=== PATIENT | female | born 1995 | race Caucasian/White ===

== ENCOUNTER → 2017-01-08 14:50 | Emergency (ER) | payer OTHER | END | disposition home or self-care (01) | LOC: UCEAST 14:50 | DX: Z53.21 Procedure and treatment not carried out due to patient leaving prior to being seen by health care provider (principal) ==

== ENCOUNTER 2017-01-08 14:58 | Emergency (ER) | payer OTHER ==
[2017-01-08 15:44] VITALS: BP 101/57
--- NOTE | 2017-01-08 16:37 | UC ---
GI Bleed HPI - HPI Summary HPI Summary: 21 year old female who is 6 weeks , complaints of feeling sick with nausea for past 2 weeks, vomited once yesterday. Sob at times per patient. Type 1 diabetic. SOB started 3-4 days ago and can not walk upstairs without getting SOB. [ End ] - History Of Current Complaint Chief Complaint: UCGeneralIllness Stated Complaint: VOMITING Time Seen by Provider: 01/08/17 16:16 Hx Obtained From: Patient Hx Last Menstrual Period: 08/08/14 - Allergies/Home medications Allergies/Adverse Reactions: Allergies Allergy/AdvReac Type Severity Reaction Status Date / Time environmental allergies Allergy Congestion Uncoded 01/08/17 15:43 PMH/Surg Hx/FS Hx/Imm Hx Previously Healthy: Yes Endocrine History: Diabetes - Surgical History Surgical History: None Surgery Procedure, Year, and Place: left arm mole 2010 - Family History Known Family History: Positive: None - Social History Lives: With Family Alcohol Use: Occasionally Substance Use Type: None Smoking Status (MU): Former Smoker Type: Cigarettes Amount Used/How Often: 2 per day Length of Time of Smoking/Using Tobacco: 5 years on/off Have You Smoked in the Last Year: Yes When Did the Patient Quit Smoking/Using Tobacco: 2013 - Immunization History Most Recent Tetanus Shot: unknown Review of Systems Respiratory: Shortness Of Breath All Other Systems Reviewed And Are Negative: Yes Physical Exam Triage Information Reviewed: Yes Appearance: Well-Appearing, No Pain Distress, Well-Nourished Vital Signs: Initial Vital Signs Temp 99.4 F 01/08/17 15:38 Pulse 69 01/08/17 15:38 Resp 16 01/08/17 15:38 BP 101/57 01/08/17 15:38 Pulse Ox 100 01/08/17 15:38 Eye Exam: Normal ENT Exam: Normal Dental Exam: Normal Neck exam: Normal Neck: Positive: 1 Respiratory Exam: Normal Cardiovascular Exam: Normal Musculoskeletal Exam: Normal Neurological Exam: Normal Psychological Exam: Normal Skin Exam: Normal Bleed Course/Dx - Course Course Of Treatment: With SOB and being concern for hypercoaguable. Needs further work up likely including r/o PE -- she is aware and agreeable to go to ED by car. I spoke with [facility] and they are willing to accept her. She is aware of risks of not going to ED and signed AMA form as she declined ambulance - Differential Dx/Diagnosis Provider Diagnoses: shortness of breath Discharge - Discharge Plan Condition: Good Disposition: AGAINST MEDICAL ADVICE Patient Education Materials: Dyspnea (ED) Referrals: MISTI Ocampo [Primary Care Provider] - Additional Instructions: PLEASE GO DIRECTLY TO THE EMERGENCY ROOM IN [place]
== END 2017-01-08 16:57 | disposition left against medical advice (07) ==
LOC: UCCORT 14:58
DX: O21.0 Mild hyperemesis gravidarum (principal); O24.911 Unspecified diabetes mellitus in pregnancy, first trimester; R06.02 Shortness of breath; Z3A.01 Less than 8 weeks gestation of pregnancy
CPT/HCPCS: 99212; G0463

== ENCOUNTER → 2017-01-08 15:11 | Emergency (ER) | payer OTHER | END | disposition home or self-care (01) | LOC: UCEAST 15:11 | DX: Z53.21 Procedure and treatment not carried out due to patient leaving prior to being seen by health care provider (principal) ==

== ENCOUNTER 2018-07-25 18:32 | Emergency (ER) | payer OTHER ==
--- OUTSIDE RECORDS SUMMARY | 2018-07-25 18:41 | XMS REPORT | Continuity of Care Document ---
:1995 External Reference #:[id number] Author Name Omer Georges Care Team Providers Name Role Phone Lourdes Staley PA Care Team Information Class A Truck Driver Unavailable Lourdes Staley PA Primary Care Physician Unavailable Payers Date Identification Numbers Payment Provider Subscriber Policy Number: [id number] [place] [employer] Jael Allen PayID: [id number] [address] [address] [place] [address] Expires: 2017 Policy Number: [id number] [place] [employer] Jael Allen PayID: [id number] [address] [place] [address] Advance Directives Description No Information Available Problems Active Problems Provider Date Kenan Jimenez MD,FACS Onset: 08/30/2016 Type 1 diabetes mellitus uncontrolled Lourdes Staley PA Onset: 05/31/2017 Family History Date Family Member(s) Observation Comments Father No Current Problems Mother 42 Mother Cyst Of Ovary Children 1 Siblings 2 : (age 72 Maternal Grandfather due to Heart Attack Years) Maternal Grandmother due to Breast Cancer () Social History Type Date Description Comments Sex Unknown Lives With Grandmother Lives With Grandfather Diet Diabetic Occupation [employer]. ADL's/IADL's Independent with all ADL's ETOH Use Occasionally consumes alcohol Tobacco Use Start: Unknown End: Patient is a former smoker 1/2 pack per day. Unknown Started at age 16. Quit 3 years ago. Smoking Status Reviewed: 06/19/18 Patient is a former smoker 1/2 pack per day. Started at age 16. Quit 3 years ago. Allergies, Adverse Reactions, Alerts Description No Known Drug Allergies Medications Active Medications SIG Qnty Indications Ordering Date Provider Sertraline HCL 1 by mouth every 30tabs F33.9 Kelli Marcum, 06/19/2018 50mg day Tablets Ventolin HFA 2 puffs every 4 18gm J45.20 Kelli Marcum, 05/02/2018 hours as needed 108(90Base) mcg/Act for cough and Aerosol wheeze Pulmicort Flexhaler one puff twice a 3units J45.20 Clune, 02/24/2017 day Jenbecky, 180mcg/Act Aerosol [employer] Alma Contour Next 1 strip 3-4x a 350units E10.65 Caren Dykes, 11/08/2016 Blood Glucose Test day M.D. Strips Onetouch Ultra Blue use to test blood 150units Caren Dykes, 06/09/2016 sugar 2-4x a day M.D. Strips Minimed Pro-Set as needed 10units E10.65 Caren Dykes, 03/25/2016 Infusion Set/24"/6mm M.D. 24"/6mm Misc Minimed Pump change reservoir 30units E10.65 Caren Dykes, 03/04/2016 [place] 3ML every 3 days M.D. Res 3ML Misc Ketone Test as needed 50units Caren Dykes, 12/05/2015 Strips M.D. Alma Contour Next Malick Dykes, Blood Glucose Test MD Strips Levothyroxine Sodium 1 tab daily on an Anjel Castañeda W, empty stomach 50mcg Tablets Admelog Use With Insulin Unknown 100Unit/ML Pump Maximum Solution Daily Dose 100 Units History Medications Diazepam 1-2 tabs po 1 hour 4tabs F41.9 Kelli Marcum, 05/02/2018 - 2mg prior to dental 06/19/2018 Tablets procedure Sertraline HCL 1 by mouth every 30tabs F33.9 Kelli Marcum, 05/02/2018 - 25mg day 06/19/2018 Tablets Escitalopram 1/2 by mouth daily 30tabs F33.9 Kelli Marcum, 01/11/2018 - Oxalate during first week, 05/02/2018 10mg then increase to 1 Tablets by mouth every day Zoloft 1 tab by mouth 30tabs Jossue Kelli, 09/09/2017 - 50mg Tablets every day 01/11/2018 [address] of 3units Kerrie Mary, 06/01/2017 - 100mg vagina at bedtime M.D. 06/01/2017 Suppository for 3 nights. Clindamycin [address] of 40gm Kerrie Mary, 06/01/2017 - Phosphate vagina at bedtime M.D. 06/04/2017 2% Cream for 3 nights. Alma Contour Link use to test bs 1units Caren Dykes, 11/08/2016 - Blood Glucose three times a day M.D. 11/18/2016 Monitoring System w/Device Kit Humalog Kwikpen per s/s MDD 15units Caren Dykes, 03/31/2016 - 30units M.D. 11/08/2016 100Unit/ML Solution Pen-Inject Humalog for use in insulin 4vials Caren Dykes, 11/20/2015 - 100Unit/ML pump MDD 55units M.D. Unknown Solution Humalog for use in insulin 30ml Kerrie Mary, 11/19/2015 - 100Unit/ML pump - mdd 55units M.D. 06/19/2018 Solution [employer] Contour Blood check glucose 4x/ 200units Caren Dykes, 11/19/2015 - Glucose Test Strips day M.D. 12/10/2015 Strips Famotidine 1 tab by mouth Unknown - 20mg daily Unknown Tablets Lantus Solostar 40 u subcutaneous Unknown - every day 03/11/2016 100Unit/ML Solution Pen-Inject Humalog Kwikpen s/s before meals Unknown - 03/11/2016 100Unit/ML Solution Pen-Inject Paroxetine HCL 1 by mouth every Unknown - 10mg day 03/11/2016 Tablets Flintstones Gummies 2 tabs daily Unknown - Complete 01/11/2018 [facility] Immunizations CPT Code Status Date Vaccine Lot # [id number] Given 05/02/2018 Pneumococcal Conjugate Vaccine 13 Valent For [id number] Intramuscular Use 25048 Given 01/11/2018 Influenza Virus Vaccine, Quadrivalent, 36 Mos+, [id number] Given 02/02/2017 Influenza Virus Vaccine Quadrivalent Iiv4 Split Preser Free Id Vital Signs Date Vital Result Comment 06/19/2018 8:57am BP Systolic Sitting Right Arm 124 mmHg BP Diastolic Sitting Right Arm 72 mmHg Body Temperature 97.7 F Heart Rate 92 /min Weight 236.25 lb O2 % BldC Oximetry 97 % 05/02/2018 10:24am BP Systolic 110 mmHg BP Diastolic 82 mmHg Body Temperature 98.8 F Heart Rate 81 /min Respiratory Rate 18 /min Height 65 inches 5'5" Weight 230.00 lb BMI (Body Mass Index) 38.3 kg/m2 BSA (Body Surface Area) 2.10 m2 [place] body weight in kilograms 57 kg O2 % BldC Oximetry 98 % 01/11/2018 1:23pm BP Systolic Sitting Right Arm 122 mmHg BP Diastolic Sitting Right Arm 78 mmHg Body Temperature 97.5 F Heart Rate 95 /min Weight 254.31 lb O2 % BldC Oximetry 98 % 05/31/2017 2:48pm BP Systolic Sitting Right Arm 118 mmHg BP Diastolic Sitting Right Arm 64 mmHg Body Temperature 97.3 F Heart Rate 78 /min Weight 214.25 lb O2 % BldC Oximetry 97 % 02/24/2017 3:29pm BP Systolic Sitting Left Arm 108 mmHg BP Diastolic Sitting Left Arm 64 mmHg Body Temperature 98.4 F Heart Rate 72 /min Respiratory Rate 18 /min Height 66 inches 5'6" Weight 203.00 lb BMI (Body Mass Index) 32.8 kg/m2 BSA (Body Surface Area) 2.01 m2 [place] body weight in kilograms 59 kg 02/02/2017 2:46pm BP Systolic 104 mmHg BP Diastolic 68 mmHg Heart Rate 69 /min Height 66 inches 5'6" 70 Weight 206.25 lb BMI (Body Mass Index) 33.3 kg/m2 BSA (Body Surface Area) 2.03 m2 [place] body weight in kilograms 59 kg 11/08/2016 2:09pm BP Systolic 122 mmHg BP Diastolic 76 mmHg Height 66 inches 5'6" 70 Weight 210.38 lb BMI (Body Mass Index) 34.0 kg/m2 BSA (Body Surface Area) 2.04 m2 [place] body weight in kilograms 59 kg 08/30/2016 2:58pm BP Systolic 122 mmHg BP Diastolic 78 mmHg Height 66 inches 5'6" 70 Weight 215.00 lb BMI (Body Mass Index) 34.7 kg/m2 BSA (Body Surface Area) 2.06 m2 [place] body weight in kilograms 59 kg 03/11/2016 2:36pm BP Systolic 112 mmHg BP Diastolic 70 mmHg Height 08648 inches 5509'4" 70 Weight 190.00 lb BMI (Body Mass Index) 0.0 kg/m2 BSA (Body Surface Area) 293.18 m2 08/27/2015 1:15pm BP Systolic 112 mmHg BP Diastolic 70 mmHg Height 82457 inches 70 Weight 182.38 lb BMI (Body Mass Index) 0.0 kg/m2 BSA (Body Surface Area) 288.12 m2 [place] body weight in kilograms 752311 kg Results Test Date Facility Test Result H/L Range Note CBC 05/12/2018 [facility] White Blood Count 4.7 K/uL N 3.1-10.7 1 [address] [place] [address] [phone] Red Blood Count 4.84 M/uL N 3.90-5.40 Hemoglobin 13.1 gm/dL N 11.6-15.8 Hematocrit 38.6 % N 36.0-46.1 Mean Cell Volume 79.8 fl Low 80.9-99.0 Mean Corpuscular HGB 27.1 pg N 25.9-32.7 Mean Corpuscular HGB Conc 33.9 g/dL N 30.8-34.3 Platelet Count 286 K/uL N 155-360 Red Cell Distri Width %CV 13.4 % N 11.7-14.4 Mean Platelet Volume 10.5 fL N 8.9-12.4 Ua RFX Micro & Culture 05/12/2018 [facility] Urine Color YELLOW Yellow II [address] [place] [address] [phone] Urine Clarity CLEAR Clear Urine Glucose - Dipstick >=1000 mg/dL High Negative Urine Bilirubin - Dipstick NEGATIVE Negative Urine Ketone NEGATIVE mg/dL Negative Urine Specific [place] 1.025 N 1.010-1.030 Urine Blood SMALL Abnormal Negative Urine PH 7.0 N 6.5-7.5 Urine Protein - Dipstick NEGATIVE mg/dL Negative Urine Urobilinogen - Dipstick 0.2 E.U./dL N 0.2-1.0 Urine Nitrite - Dipstick NEGATIVE Negative Urine Leuk Esterase NEGATIVE Negative Urine RBC 0-2 rbc/hpf 0-2 Urine WBC 2-5 wbc/hpf 0-7 Urine Epithelial Cells MODERATE /lpf None Seen 2 Urine Bacteria FEW None Seen Source: URINE, CLEAN CAT <SEE NOTE> 3 Comprehensive Metabolic 05/12/2018 [facility] Glucose 229 mg/dL High 74-106 Panel [address] [place] [address] [phone] BUN 11 mg/dL N 7-18 Creatinine 0.9 mg/dL 0.6-1.3 Glom Filtration Rate, Estimate >60 mL/min >60 If >60 mL/min >60 4 BUN/Creat 12.2 ratio Sodium 139 mmol/L N 136-145 Potassium 4.0 mmol/L N 3.5-5.1 Chloride 108 mmol/L High 98-107 Carbon Dioxide 23 mmol/L N 21-32 Anion Gap 8 mEq/L N 8-16 Calcium 8.3 mg/dL Low 8.5-10.1 Total Protein 7.5 g/dL N 6.4-8.2 Albumin 3.5 g/dL N 3.4-5.0 Globulin 4.0 g/dL N 1.9-4.3 Alb/Glob 0.9 ratio Bilirubin,Total 0.6 mg/dL N 0.2-1.0 Sgot/Ast 16 U/L N 15-37 SGPT/Alt 12 U/L N 12-78 Alkaline Phosphatase 71 U/L N 45-117 Laboratory test 05/12/2018 [facility] HCG, Quant < 1.0 mIU/mL 5 finding [address] [place] [address] [phone] Urine Dipstick 05/02/2018 [facility] Ua Color Yellow Yellow Ua Clarity Clear Clear Ua Leuko Negative Negative Ua Nitrite Negative Negative Ua Urobilinogen Negative Low 0.2 - 1.0 E.U./dL Ua Protein Negative Negative Ua PH 6.5 6.5-7.5 Ua Blood Negative Negative Ua Specific [place] 1.015 1.010-1.030 Ua Ketones 3+ High Negative Ua Bilirubin Negative Negative Ua Glucose 3+ High Negative pH Ur Strip.auto 02/27/2018 N2N/CCD Import pH Ur Strip.auto 5.5 Low 6.5- 7.5 Urobilinogen Ur 02/27/2018 N2N/CCD Import Urobilinogen Ur 0.2 0.2-1.0 Strip-aCnc Strip-aCnc Urine total 02/27/2018 N2N/CCD Import Urine total Negative Negative bilirubin bilirubin detection by detection by automated test automated test strip Urine human 02/27/2018 N2N/CCD Import Urine human Negative Negative chorionic chorionic gonadotropin (hCG) gonadotropin (hCG) detection detection Urine hemoglobin 02/27/2018 N2N/CCD Import Urine hemoglobin Negative Negative detection by detection by automated test automated test strip strip Urine appearance 02/27/2018 N2N/CCD Import Urine appearance Clear Clear determination determination Prot Ur 02/27/2018 N2N/CCD Import Prot Ur Negative Negative Strip.auto-mCnc Strip.auto-mCnc Nitrite Ur Ql 02/27/2018 N2N/CCD Import Nitrite Ur Ql Negative Negative Strip.auto Strip.auto Leukocyte esterase 02/27/2018 N2N/CCD Import Leukocyte esterase Negative Negative Ur Ql Strip.auto Ur Ql Strip.auto Ketones Ur 02/27/2018 N2N/CCD Import Ketones Ur 40 High Negative Strip.auto-mCnc Strip.auto-mCnc Color Ur 02/27/2018 N2N/CCD Import Color Ur Yellow Yellow Chlmaydia/GC/Trich 02/27/2018 [facility] Chlamydia NEGATIVE Negative 6 omonas PCR [address] trachomatis, [place] [address] [phone] Neisseria gonorrhoeae, PCR NEGATIVE Negative 7 Trichomonas vaginalis PCR NEGATIVE Negative Herpes Culture 02/27/2018 [facility] Herpes Culture HSV [address] Culture/[place] [address] <SEE NOTE> [phone] Capillary 02/27/2018 N2N/CCD Import Capillary 470 *H 70-110 blood glucose blood glucose measurement by measurement by glucometer glucometer (mass/volume) Chlamydia/GC 05/31/[address] [facility] [address] Chlamydia Negative Negative 9 Valeria, Urine [address] Trachomatis,[place] [address] -PCR [phone] Neisseria Gonorrhoeae,Ur -PCR Negative Negative 10 Urine Culture 05/31/2017 [facility] [address] Urine Culture URETHRAL ALINA [address] [place] [address] [phone] Quantity 10,000 - 50,000 <SEE NOTE> 11 Affirm 05/31/[address] [facility] [address] Trichomonas Negative [Negative] Vaginitis [address] [place] [address] [phone] Gardnerella vaginalis POSITIVE High [Negative] Debra species Negative [Negative] 12 Laboratory 03/15/2017 [facility] Varicella-Zoster 2776 Immune 13, 14 test finding [address] Virus IgG Ab index >165 [place] [address] [phone] Varicella-Zoster Virus IgM Ab <0.91 index 0.00-0.90 15 Treponema Antibody [place] Negative Negative Hepatitis B Surface Antigen Negative Negative Hepatitis C Antibody < 0.1 s/corat 0.0-0.9 16 Rubella IgG Antibody 3.78 index Immune >0.99 17 Toxoplasma Igm 03/15/2017 [facility] Toxoplasma IgM 5.5 AU/mL 0.0-7.[address] [place] [address] [phone] Comment: (SEE NOTE) 19 Laboratory test 03/15/2017 [facility] Rubella Virus <20.0 AU/mL 0.0-19.[address] [place] [place] [address] [phone] Toxoplasma IgG Antibody <3.0 IU/mL 0.0-7.1 21 Parvovirus 03/15/2017 [facility] Parvovirus B19 0.6 index 0.0-0.8 22 B19,Human [address] Igg Igg/[place] [address] [phone] Parvovirus B19 Igm 0.1 index 0.0-0.8 23 HSV I & II Igg 03/15/2017 [facility] HSV II,Igg,Type <0.91 0.00-0.90 24 Type Specific [address] [place] [place] [address] [phone] HSV Type I Specific Igg 28.60 index High 0.00-0.90 25 Laboratory 03/15/2017 [facility] Lead,Blood <1 g/dL 0-19 26 test finding [address] (Adult) [place] [address] [phone] HIV Screen 4TH 03/15/2017 [facility] HIV Screen 4th Non Reactive Non 27 [address]lex [address] [place] [place] [address] wRfx [phone] Type And 03/15/2017 [facility] Patient Blood B POS N Screen [address] [place] [address] [phone] Antibody Screen Negative N Negative Laboratory test 03/15/2017 [facility] Thyroid Stim 3.34 uIU/mL N 0.30-4.[address] Hormone [place], [place] [address] [phone] HCG, Quant 03475.0 mIU/mL 28 Free T3 2.23 pg/mL N 2.18-3.98 Free T4 1.00 ng/dL N 0.76-1.46 CBC 03/15/2017 [facility] White Blood Count 9.2 K/uL N 3.1-10.7 [address] [place] [address] [phone] Red Blood Count 4.45 M/uL N 3.90-5.40 Hemoglobin 12.6 gm/dL N 11.6-15.8 Hematocrit 36.9 % N 36.0-46.1 Mean Cell Volume 82.9 fl N 80.9-99.0 Mean Corpuscular HGB 28.3 pg N 25.9-32.7 Mean Corpuscular HGB Conc 34.1 g/dL N 30.8-34.3 Platelet Count 296 K/uL N 155-360 Red Cell Distri Width %CV 13.2 % N 11.7-14.4 Mean Platelet Volume 10.4 fL N 8.9-12.4 Microalbumin,Random 03/15/2017 [facility] Microalbumin,Urine 27.2 mg/L < Urine [address] 20.0 [place], [place] [id number] [phone] Drugs Of Abuse-Urine 03/15/2017 [facility] Amphetamines (Urine) Negative Screen [address] [place], [place] [address] [phone] Barbiturates (Urine) Negative Benzodiazepines (Urine) Negative Cannabinoids (Urine) Negative Cocaine Metabolite (Urine) Negative Methadone (Urine) Negative Opiates (Urine) Negative Urine Cutoffs * 29 Ua RFX Micro & Culture 03/15/2017 [facility] Urine Color YELLOW Yellow II [address] [place] [address] [phone] Urine Clarity CLEAR Clear Urine Glucose - Dipstick 250 mg/dL High Negative Urine Bilirubin - Dipstick NEGATIVE Negative Urine Ketone NEGATIVE mg/dL Negative Urine Specific [place] >=1.030 N 1.010-1.030 Urine Blood NEGATIVE Negative Urine PH 6.0 Low 6.5-7.5 Urine Protein - Dipstick TRACE mg/dL Negative Urine Urobilinogen - Dipstick 0.2 E.U./dL N 0.2-1.0 Urine Nitrite - Dipstick NEGATIVE Negative Urine Leuk Esterase NEGATIVE Negative Source: URINE, CLEAN CAT <SEE NOTE> 30 Ua RFX Micro & Culture 12/31/2016 [facility] Urine Color YELLOW Yellow 31 II [address] [place] [address] [phone] Urine Clarity CLEAR Clear Urine Glucose - Dipstick >=1000 mg/dL High Negative Urine Bilirubin - Dipstick NEGATIVE Negative Urine Ketone NEGATIVE mg/dL Negative Urine Specific [place] >=1.030 N 1.010-1.030 Urine Blood NEGATIVE Negative Urine PH 6.0 Low 6.5-7.5 Urine Protein - Dipstick NEGATIVE mg/dL Negative Urine Urobilinogen - Dipstick 0.2 E.U./dL N 0.2-1.0 Urine Nitrite - Dipstick NEGATIVE Negative Urine Leuk Esterase NEGATIVE Negative Source: URINE, CLEAN CAT <SEE NOTE> 32 Laboratory test finding 12/31/2016 [facility] Lipase 101 U/L N 56-289 [address] [place] [address] [phone] HCG, Quant 3855.0 mIU/mL 33 Comprehensive Metabolic 12/31/2016 [facility] Glucose 146 mg/dL High 74-106 Panel [address] [place] [address] [phone] BUN 4 mg/dL Low 7-18 Creatinine 0.7 mg/dL N 0.6-1.3 Glom Filtration Rate, Estimate >60 mL/min >60 If >60 mL/min >60 34 BUN/Creat 5.7 ratio Sodium 139 mmol/L N 136-145 Potassium 3.5 mmol/L N 3.5-5.1 Chloride 109 mmol/L High 98-107 Carbon Dioxide 24 mmol/L N 21-32 Anion Gap 6 mEq/L Low 8-16 Calcium 8.2 mg/dL Low 8.5-10.1 Total Protein 7.2 g/dL N 6.4-8.2 Albumin 3.5 g/dL N 3.4-5.0 Globulin 3.7 g/dL N 1.9-4.3 Alb/Glob 0.9 ratio Bilirubin,Total 0.4 mg/dL N 0.2-1.0 Sgot/Ast 14 U/L Low 15-37 35 SGPT/Alt 10 U/L Low 12-78 36 Alkaline Phosphatase 57 U/L N 45-117 CBS W/Automated Diff 12/31/2016 [facility] White Blood 5.6 K/uL N 3.1-10.[address] [place] [address] [phone] Red Blood Count 4.31 M/uL N 3.90-5.40 Hemoglobin 12.2 gm/dL N 11.6-15.8 Hematocrit 35.2 % Low 36.0-46.1 Mean Cell Volume 81.7 fl N 80.9-99.0 Mean Corpuscular HGB 28.3 pg N 25.9-32.7 Mean Corpuscular HGB Conc 34.7 g/dL High 30.8-34.3 Platelet Count 291 K/uL N 150-400 Red Cell Distri Width SD 37.8 fl N 3-47 Red Cell Distri Width %CV 13.1 % N 11.7-14.4 Mean Platelet Volume 10.8 fL N 8.9-12.4 Neut% 54.6 % N 40.4-72.8 Lymph % 36.2 % N 20.0-42.0 Villalba % 7.7 % N 4.3-13.2 Eo% 1.3 % N 0.0-6.6 Bas% 0.2 % N 0.0-1.1 Neut# 3.05 K/uL N 1.8-7.0 Lymph # 2.02 K/uL N 1.0-4.0 Villalba # 0.43 K/uL N 0.3-0.9 Eos # 0.07 K/uL N 0.0-0.5 Baso # 0.01 K/uL N 0.0-0.1 CBS W/Automated 11/01/2016 [facility] White Blood 4.3 K/uL N 3.1-10.7 [address] [place] [address] [phone] Red Blood Count 4.70 M/uL N 3.90-5.40 Hemoglobin 13.2 gm/dL N 11.6-15.8 Hematocrit 38.2 % N 36.0-46.1 Mean Cell Volume 81.3 fl N 80.9-99.0 Mean Corpuscular HGB 28.1 pg N 25.9-32.7 Mean Corpuscular HGB Conc 34.6 g/dL High 30.8-34.3 Platelet Count 262 K/uL N 150-400 Red Cell Distri Width SD 36.9 fl N 3-47 Red Cell Distri Width %CV 12.7 % N 11.7-14.4 Mean Platelet Volume 11.9 fL N 8.9-12.4 Neut% 54.5 % N 40.4-72.8 Lymph % 35.9 % N 20.0-42.0 Villalba % 7.7 % N 4.3-13.2 Eo% 1.4 % N 0.0-6.6 Bas% 0.5 % N 0.0-1.1 Neut# 2.34 K/uL N 1.8-7.0 Lymph # 1.54 K/uL N 1.0-4.0 [place] # 0.33 K/uL N 0.3-0.9 Eos # 0.06 K/uL N 0.0-0.5 Baso # 0.02 K/uL N 0.0-0.1 Comprehensive Metabolic 11/01/2016 [facility] Glucose 144 mg/dL High 74-[address] [place] [address] [phone] BUN 9 mg/dL N 7-18 Creatinine 0.8 mg/dL N 0.6-1.3 Glom Filtration Rate, Estimate >60 mL/min >60 If >60 mL/min >60 38 BUN/Creat 11.2 ratio Sodium 141 mmol/L N 136-145 Potassium 3.8 mmol/L N 3.5-5.1 Chloride 109 mmol/L High 98-107 Carbon Dioxide 26 mmol/L N 21-32 Anion Gap 6 mEq/L Low 8-16 Calcium 8.6 mg/dL N 8.5-10.1 Total Protein 7.6 g/dL N 6.4-8.2 Albumin 3.6 g/dL N 3.4-5.0 Globulin 4.0 g/dL N 1.9-4.3 Alb/Glob 0.9 ratio Bilirubin,Total 0.9 mg/dL N 0.2-1.0 Sgot/Ast 17 U/L N 15-37 SGPT/Alt 12 U/L N 12-78 Alkaline Phosphatase 67 U/L N 45-117 Glycohemoglobin 11/01/2016 [facility] Glycohemoglobin 9.8 % High 4.2-6.[address] (A1c) [place] [address] [phone] eAG 235 mg/dL LDL Cholesterol Profile 11/01/2016 [facility] Cholesterol 126 mg/dL <[address] [place] [address] [phone] Triglycerides 54 mg/dL <150 41 HDL Cholesterol 53 mg/dL >40 42 LDL-Cholesterol 62 mg/dL < 100 43 Microalb/Creat 11/01/2016 [facility] Microalbumin,Urine 30.9 < 20.0 Ratio,Random [address] mg/[place] [address] [phone] Microalbumin/Creatinine Ratio 7.9 ug/mgCrt < 30.0 Urine Creatinine Conc 390 mg/dL Laboratory test 08/21/2015 N2N/CCD Import Miscellaneous Test Test(s) added finding Comment Laboratory test 08/21/2015 N2N/CCD Import Magnesium Level 1.4 Low 1.8-2. finding 4 Laboratory test 08/21/2015 N2N/CCD Import Basophils # (Auto) 0.01 0.0- 0. finding 1 Basophils (%) (Auto) 0.2 0.0-1.1 Eosinophils # (Auto) 0.08 0.0-0.5 Eosinophils (%) (Auto) 1.9 0.0-6.6 Hematocrit 33.6 Low 36.0-46.1 Hemoglobin 11.8 11.6-15.8 Lymphocytes # (Auto) 1.81 1.8-7.0 Lymphocytes (%) (Auto) 44.0 17.0-46.1 Manual Slide Review (Hematology) . Mean Corpuscular Hemoglobin 28.0 25.9-32.7 Mean Corpuscular Hemoglobin Concent 35.1 High 30.8-34.3 Mean Corpuscular Volume 79.6 Low 80.9-99.0 Mean Platelet Volume 11.0 8.9-12.4 Microcytosis 1+ Monocytes # (Auto) 0.42 0.3-0.9 Monocytes (%) (Auto) 10.2 4.3-13.2 Neutrophils # (Auto) 1.79 Low 1.8-7.0 Neutrophils (%) (Auto) 43.7 40.4-72.8 Platelet Count 217 155-360 RDW Coefficient of Variation 14.7 High 11.7-14.4 Red Blood Count 4.22 3.90-5.40 Red Cell Distribution Width 41.5 3-47 White Blood Count 4.1 3.1-10.7 Laboratory test finding 08/21/2015 N2N/CCD Import Bedside Glucose 135 High 70-110 Laboratory test finding 08/21/2015 N2N/CCD Import Anion Gap 10 8-16 BUN/Creatinine Ratio 1.6 Blood Urea Nitrogen 1 *L 7-18 Calcium Level 8.2 Low 8.5-10.1 Carbon Dioxide Level 20 Low 21-32 Chloride Level 110 High 98-107 Creatinine 0.6 0.6-1.3 Glucose Screen 160 High 74-106 Potassium Level 3.6 # 3.5-5.1 Sodium Level 140 136-145 Laboratory test finding 08/19/2015 N2N/CCD Import Blood Gas Specimen Room Air Type FiO2 21 20-101 Lactic Acid Level 1.8 0.4-1.9 Venous Blood Base Excess -25.3 Venous Blood Hco3 4.2 Venous Blood Oxygen Saturation 73.1 60-80 Venous Blood pCO2 at Patient Temp 17 Low 45-50 Venous Blood pH 7.01 Low 7.25-7.55 Venous Blood pO2 at Patient Temp 42 40-60 Laboratory test 08/19/2015 N2N/CCD Import Alanine Aminotransferase 11 Low 12-78 finding (Alt/SGPT) Albumin 4.0 3.4-5.0 Albumin/Globulin Ratio 0.8 Alkaline Phosphatase 129 High 45-117 Aspartate Amino Transf (Ast/Sgot) 8 Low 15-37 Atypical Lymphocytes % 1 0-7 Band Neutrophils % 2 0-8 Differential Total Cells Counted 100 Estimated Average Glucose (eAG) 324 Globulin 5.0 High 1.9-4.3 Hemoglobin A1c 12.9 High 4.2-6.3 Lymphocytes % 20 17-56 Metamyelocytes % 1 High -0 Monocytes % 5 0-10 Neutrophils % 71 33-73 Nucleated Red Blood Cells/100 WBC 1 High -0 Platelet Estimate Normal Serum Ketones Large High Negative Total Bilirubin 0.5 0.2-1.0 Total Protein 9.0 High 6.4-8.2 Laboratory test 08/19/2015 N2N/CCD Import Urine Bacteria Very Few None Seen finding Urine Bilirubin Small High Negative Urine Blood Small High Negative Urine Clarity Clear Clear Urine Color Yellow Yellow Urine Epithelial Cells Moderate None Seen Urine Glucose (Ua) 500 High Negative Urine Leukocyte Esterase Negative Negative Urine Nitrite Negative Negative Urine Protein 100 High Negative Urine RBC None Seen 0-2 Urine Urobilinogen 0.2 0.2-1.0 Urine pH 5.5 Low 6.5-7.5 Laboratory test 07/09/2015 N2N/CCD Import Debra species Negative [ Negative] finding Dna Probe Gardnerella Dna Probe Positive High [Negative] Trichomonas Dna Probe Negative [Negative] Laboratory test 07/09/2015 N2N/CCD Import Alanine Aminotransferase 12 12 -78 finding (Alt/SGPT) Albumin 3.7 3.4-5.0 Albumin/Globulin Ratio 1.0 Alkaline Phosphatase 99 45-117 Anion Gap 11 8-16 Aspartate Amino Transf (Ast/Sgot) 4 Low 15-37 BUN/Creatinine Ratio 10.0 Basophils # (Auto) 0.03 0.0-0.1 Basophils (%) (Auto) 0.5 0.0-1.1 Blood Urea Nitrogen 10 7-18 Calcium Level 9.2 8.5-10.1 Carbon Dioxide Level 25 21-32 Chloride Level 103 98-107 Creatinine 1.0 0.6-1.3 Eosinophils # (Auto) 0.07 0.0-0.5 Eosinophils (%) (Auto) 1.3 0.0-6.6 Globulin 3.8 1.9-4.3 Glucose Screen 366 High 74-106 Hematocrit 39.0 36.0-46.1 Hemoglobin 13.2 11.6-15.8 Lymphocytes # (Auto) 1.90 1.8-7.0 Lymphocytes (%) (Auto) 34.4 17.0-46.1 Mean Corpuscular Hemoglobin 27.4 25.9-32.7 Mean Corpuscular Hemoglobin Concent 33.8 30.8-34.3 Mean Corpuscular Volume 80.9 80.9-99.0 Mean Platelet Volume 11.6 8.9-12.4 Monocytes # (Auto) 0.34 0.3-0.9 Monocytes (%) (Auto) 6.2 4.3-13.2 Neutrophils # (Auto) 3.18 1.8-7.0 Neutrophils (%) (Auto) 57.6 40.4-72.8 Platelet Count 259 155-360 Potassium Level 3.5 3.5-5.1 RDW Coefficient of Variation 13.8 11.7-14.4 Red Blood Count 4.82 3.90-5.40 Red Cell Distribution Width 39.2 3-47 Sodium Level 139 136-145 Total Bilirubin 0.3 0.2-1.0 Total Protein 7.5 6.4-8.2 White Blood Count 5.5 3.1-10.7 Laboratory test 07/09/2015 N2N/CCD Import Urine Bilirubin Negative Negative finding Urine Blood Negative Negative Urine Clarity Clear Clear Urine Color Yellow Yellow Urine HCG, Qualitative Negative Negative Urine Ketones Negative Negative Urine Leukocyte Esterase Negative Negative Urine Nitrite Negative Negative Urine Protein Negative Negative Urine Urobilinogen 0.2 0.2-1.0 Urine pH 6.0 Low 6.5-7.5 1 CONSULT 05/09/18 11:00 2 POSSIBLE UROGENITAL CONTAMINATION. 3 URINE, CLEAN CATCH 4 Note: Persistent reduction for 3 months or more in an eGFR <60 mL/min/1.73 m2 defines CKD. Patients with eGFR values >/=60 mL/min/1.73 m2 may also have CKD if evidence of persistent proteinuria is present. The original MDRD equation for estimated GFR is not valid for patients less than 18 years of age. Additional information may be found at www.kdoqi.org. 5 Approximate Gestational Age and Total BHCG Range: 0.2 - 1 Week........................5-50 mIU/mL 1 - 2 Weeks.....................50-500 mIU/mL 2 - 3 Weeks..................100-5,000 mIU/mL 3 - 4 Weeks.................500-10,000 mIU/mL 4 - 5 Weeks...............1,000-50,000 mIU/mL 5 - 6 Weeks.............10,000-100,000 mIU/mL 6 - 8 Weeks.............15,000-200,000 mIU/mL 2 - 3 Months............10,000-100,000 mIU/mL 6 BURNING AND ITCHING IN PELVIC AREA 7 A negative result for either C. trachomatis and/or N. gonorrhoeae does not preclued an infection because results are dependent on adequate specimen collection, absence of inhibitors, and sufficient DNA to be detected. 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 Typing was confirmed by monoclonal antibody microscopic immunofluorescence. Performed at: [address] [id number] [place]: Jess Galvan MD, Phone: [phone] 9 N76.0 10 A negative result for either C. trachomatis and/or N. gonorrhoeae does not preclued an infection because results are dependent on adequate specimen collection, absence of inhibitors, and sufficient DNA to be detected. 11 10,000 - 50,000 CFU/mL 12 Method: BD Affirm VPIII DNA Probe Assay 13 Z32.01 O25.019 14 Negative <135 Equivocal 135 - 165 Positive >165 A positive result generally indicates exposure to the pathogen or administration of specific immunoglobulins, but it is not indication of active infection or stage of disease. 15 Negative <0.91 Borderline 0.91 - 1.09 Positive >1.09 Performed at: [address] [id number] [place]: Jess Galvan MD, Phone: [phone] INFCE Result Units: s/co ratio Negative: < 0.8 Indeterminate: 0.8 - 0.9 Positive: > 0.9 The CDC recommends that a positive HCV antibody result be followed up with a HCV Nucleic Acid Amplification test (595656). 17 Non-immune <0.90 Equivocal 0.90 - 0.99 Immune >0.99 Performed at: [address] [id number] [place]: Jess Galvan MD, Phone: [phone] Performed at: [address] [id number] [place]: Timmy Vernon MD, Phone: [phone] Negative <8.0 Equivocal 8.0 - 9.9 Positive >9.9 19 It is presumed the patient has not been infected with and is not undergoing an acute infection with Toxoplasma. If symptoms persist, submit a new specimen after three weeks. 20 Negative <20.0 Equivocal 20.0 - 24.9 Positive >24.9 21 Negative <7.2 Equivocal 7.2 - 8.7 Positive >8.7 22 Negative <0.9 Equivocal 0.9 - 1.1 Positive >1.1 23 Negative <0.9 Equivocal 0.9 - 1.1 Positive >1.1 24 Negative <0.91 Equivocal 0.91 - 1.09 Positive >1.09 Note: Negative indicates no antibodies detected to HSV-2. Equivocal may suggest early infection. If clinically appropriate, retest at later date. Positive indicates antibodies detected to HSV-2. 25 Negative <0.91 Equivocal 0.91 - 1.09 Positive >1.09 Note: Negative indicates no antibodies detected to HSV-1. Equivocal may suggest early infection. If clinically appropriate, retest at later date. Positive indicates antibodies detected to HSV-1. 26 Environmental Exposure: WHO Recommendation <20 Occupational Exposure: OSHA Lead Std 40 THERESE 30 Detection Limit=1 27 Performed at: [address] [id number] [place]: Jess Galvan MD, Phone: [phone] Approximate Gestational Age and Total BHCG Range: 0.2 - 1 Week........................5-50 mIU/mL 1 - 2 Weeks.....................50-500 mIU/mL 2 - 3 Weeks..................100-5,000 mIU/mL 3 - 4 Weeks.................500-10,000 mIU/mL 4 - 5 Weeks...............1,000-50,000 mIU/mL 5 - 6 Weeks.............10,000-100,000 mIU/mL 6 - 8 Weeks.............15,000-200,000 mIU/mL 2 - 3 Months............10,000-100,000 mIU/mL 29 URINE SPECIMENS ARE SCREENED AT THE LISTED [facility] INITIAL TEST LEVEL Amphetamines 1000 ng/mL Barbiturates 200 ng/mL Benzodiazepines 200 ng/mL Cannabinoids 50 ng/mL Cocaine Metabolite 300 ng/mL Methadone 300 ng/mL Opiates 300 ng/mL Any PRESUMPTIVE POSITIVE findings are UNCONFIRMED. Confirmatory testing is suggested if findings are unexpected. Please contact laboratory if confirmatory testing is desired. SPECIMENS ARE HELD FOR 72 HOURS. 30 URINE, CLEAN CATCH 31 , ABD PAIN 32 URINE, CLEAN CATCH 33 Approximate Gestational Age and Total BHCG Range: 0.2 - 1 Week........................5-50 mIU/mL 1 - 2 Weeks.....................50-500 mIU/mL 2 - 3 Weeks..................100-5,000 mIU/mL 3 - 4 Weeks.................500-10,000 mIU/mL 4 - 5 Weeks...............1,000-50,000 mIU/mL 5 - 6 Weeks.............10,000-100,000 mIU/mL 6 - 8 Weeks.............15,000-200,000 mIU/mL 2 - 3 Months............10,000-100,000 mIU/mL 34 Note: Persistent reduction for 3 months or more in an eGFR <60 mL/min/1.73 m2 defines CKD. Patients with eGFR values >/=60 mL/min/1.73 m2 may also have CKD if evidence of persistent proteinuria is present. The original MDRD equation for estimated GFR is not valid for patients less than 18 years of age. Additional information may be found at www.kdoqi.org. 35 Values below the stated reference ranges of AST and ALT can be seen in normal populations. Clinical correlation is suggested. 36 Values below the stated reference ranges of AST and ALT can be seen in normal populations. Clinical correlation is suggested. 37 E10.65 38 Note: Persistent reduction for 3 months or more in an eGFR <60 mL/min/1.73 m2 defines CKD. Patients with eGFR values >/=60 mL/min/1.73 m2 may also have CKD if evidence of persistent proteinuria is present. The original MDRD equation for estimated GFR is not valid for patients less than 18 years of age. Additional information may be found at www.kdoqi.org. 39 Elevated levels of HbA1c suggest the need for more aggressive treatment of glycemia. The [place] [employer] recommends that a primary goal of therapy should be a HbA1c of <7% and that physicians should re-evaluate the treatment regimen in patients with HbA1c values consistently >8%. 40 Reference Guidelines*: Desirable: ........... < 200 mg/dL Borderline High: ..... 200-239 mg/dL High: ................ >=240 mg/dL * The National Cholesterol Education Program (NCEP) 41 Reference Guidelines*: Normal: ............. < 150 mg/dL Borderline High: .... 150-199 mg/dL High: ............... 200-499 mg/dL Very High: .......... > 500 mg/dL * Source: National Cholesterol Education Program (NCEP) 42 Reference Guidelines*: Low HDL: ..... < 40 mg/dL Normal: ..... 40-60 mg/dL Desirable: ... > 60 mg/dL *The National Cholesterol Education Program(NCEP) 43 Reference Guidelines*: Optimal:........... <100 mg/dL Near Optimal....... 100-129 mg/dL Borderline High.... 130-159 mg/dL High............... 160-189 mg/dL Very High.......... >=190 mg/dL * Source: National Cholesterol Education Program (NCEP) Procedures Date Code Description Status 06/19/2018 61463 Brief Emotional/Behav Assessment W/ Scoring Doc Per Completed Standard Inst 05/02/2018 07292 Brief Emotional/Behav Assessment W/ Scoring Doc Per Completed Standard Inst 03/21/2018 [id number] Diabetic Foot Exam Completed 03/02/2018 94387 Eye Exam Est Patient Comprehensive Completed 01/11/2018 80979 Brief Emotional/Behav Assessment W/ Scoring Doc Per Completed Standard Inst 05/30/2017 25020 Eye Exam Est Patient Comprehensive Completed 02/28/2017 42950 Eye Exam New Patient Comprehensive Completed 09/05/2015 73342 Glucose Monitoring Interpetation And Report Completed 08/21/2015 23661 Psychiatric Diag Eval W/Medical Service Completed Encounters Type Date Location Provider Dx Diagnosis Office Visit 06/19/2018 Lourdes Spence PA F33.9 Major depressive 8:45a Florencio ORONA disorder, recurrent, unspecified F41.9 Anxiety disorder, unspecified Office Visit 05/02/2018 10:30a Lourdes Spence, Z00.00 Encntr for Florencio PEDRAZA general adult medical exam w/o abnormal findings J45.20 Mild intermittent asthma, uncomplicated F33.9 Major depressive disorder, recurrent, unspecified F41.9 Anxiety disorder, unspecified Z23 Encounter for immunization Office Visit 01/11/2018 1:30p Lourdes Spence, H01.005 Unspecified Florencio PEDRAZA blepharitis left lower eyelid H01.002 Unspecified blepharitis right lower eyelid F33.9 Major depressive disorder, recurrent, unspecified Z23 Encounter for immunization Office Visit 05/31/2017 2:15p Lourdes Spence, N76.[address] PA Office Visit 02/24/2017 3:15p Family Medicine Lisa, J45.[address] Jenniferleigh, asthma, 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 mellitus with hyperglycemia F33.9 Major depressive disorder, recurrent, unspecified Office Visit 08/30/2016 2:45p Surgical Office Hattie, B07.0 Plantar lexis Grayson MD,FACS Office Visit 03/11/2016 2:30p Endocrinology Caren Dykes, E10.65 Type 1 diabetes M.D. mellitus with hyperglycemia F33.9 Major depressive disorder, recurrent, unspecified Office Visit 08/20/2015 10:31a Endocrinology Caren Dykes, E10.10 Type 1 diabetes M.D. mellitus with ketoacidosis without coma F33.9 Major depressive disorder, recurrent, unspecified Plan of Treatment Future Appointment(s):08/23/2018 1:00 pm - Lourdes Staley PA at [facility]03/05/2019 2:00 pm - David Rocha MD at [facility]/ 2019 - Lourdes Staley, PAF33.9 Major depressive disorder, recurrent, unspecifiedNew Medication:Sertraline HCL 50 mg - 1 by mouth every dayComments: Some improvement seen. Will bump the medication dose up to 50mg daily. Consider counseling.Follow up:8 fognmL26.9 Anxiety disorder, unspecifiedComments:I suggest you consider counselling. [facility] [address] [place], [place] [address]Sptpk: [facility])Address: [address] [place], [place] [address]Mcrkk: [phone]
[2018-07-25 18:49] VITALS: BP 127/76
--- NOTE | 2018-07-25 19:00 | UC ---
Skin Complaint HPI - HPI Summary HPI Summary: PT C/O GRADUAL ONSET OF TENDER "LUMP" ON RIGHT SIDE SIDE OF NECK X 4 DAYS. PT REPORTS THAT "LUMP" OPENED AND DRAINED LAST NIGHT WITH PURULENT DISCHARGE AND "HARD CENTER" THAT CAME OUT WITH SPONTANEOUS DRAINAGE - History of Current Complaint Chief Complaint: UCSkin Time Seen by Provider: 07/25/18 18:47 Stated Complaint: RIGHT SIDE NECK SKIN CONCERN Hx Obtained From: Patient Hx Last Menstrual Period: 07/17/18 ?: No Onset/Duration: Gradual Onset, Lasting Days, Still Present Skin Exposure Onset/Duration: Days Ago Timing: Constant Onset Severity: Moderate Pain Intensity: 0 Location: Discrete - RIGHT SIDE OF NECK Character: Swelling, Redness, Raised, Painful Aggravating Factor(s): Touch Alleviating Factor(s): Nothing Associated Signs & Symptoms: Positive: Drainage, Tenderness - Allergy/Home Medications Allergies/Adverse Reactions: Allergies Allergy/AdvReac Type Severity Reaction Status Date / Time environmental allergies Allergy Congestion Uncoded 07/25/18 18:49 Home Medications: Home Medications Insulin LISPRO* [HumaLOG*] 0 units SUBCUT DIRECTED 07/25/18 [History Confirmed 07/25/18] Levothyroxine Sodium 25 mcg PO DAILY 07/25/18 [History Confirmed 07/25/18] PMH/Surg Hx/FS Hx/Imm Hx Previously Healthy: Yes Endocrine History: Diabetes - Surgical History Surgical History: None Surgery Procedure, Year, and Place: left arm mole 2010, , tubal ligation - Family History Known Family History: Positive: None - Social History Occupation: Employed Full-time Lives: With Family Alcohol Use: Occasionally Substance Use Type: None Smoking Status (MU): Former Smoker Type: Cigarettes Amount Used/How Often: 2 per day Length of Time of Smoking/Using Tobacco: 5 years on/off Have You Smoked in the Last Year: Yes When Did the Patient Quit Smoking/Using Tobacco: 2013 - Immunization History Most Recent Tetanus Shot: unknown Vaccination Up to Date: No Review of Systems All Other Systems Reviewed And Are Negative: Yes Constitutional: Positive: Negative Skin: Positive: Other - tender lump, spontaneous purulent drainage right side of neck Eyes: Positive: Negative ENT: Positive: Negative Respiratory: Positive: Negative Cardiovascular: Positive: Negative Gastrointestinal: Positive: Negative Genitourinary: Positive: Negative Motor: Positive: Negative Neurovascular: Positive: Negative Musculoskeletal: Positive: Negative Neurological: Positive: Negative Psychological: Positive: Negative Is Patient Immunocompromised?: No Physical Exam Triage Information Reviewed: Yes Appearance: Well-Appearing Vital Signs: Initial Vital Signs Temp 97.0 F 07/25/18 18:41 Pulse 82 07/25/18 18:41 Resp 16 07/25/18 18:41 BP 127/76 07/25/18 18:41 Pulse Ox 100 07/25/18 18:41 Vital Signs Reviewed: Yes Eye Exam: Normal ENT Exam: Normal Dental: Positive: Gross Decay/Caries @ Neck exam: Normal Respiratory: Positive: No respiratory distress Musculoskeletal Exam: Normal Neurological Exam: Normal Psychological Exam: Normal Skin Exam: Other - quarter size, erythematous raised area on rigth side of neck with scant amount of purulent drainage. hole in center of erythematous raised area. Course/Dx - Differential Diagnoses - Skin Complaint Differential Diagnoses: Abscess, MRSA - Diagnoses Provider Diagnosis: Carbuncle and furuncle of neck Discharge - Sign-Out/Discharge Documenting (check all that apply): Patient Departure All imaging exams completed and their final reports reviewed: No Studies - Discharge Plan Condition: Stable Disposition: HOME Prescriptions: Cephalexin CAP* [Keflex 500 CAP*] 500 mg PO Q12H #20 cap Sulfamethox/Trimethoprim DS* [Bactrim DS 800/160 TAB*] 1 tab PO Q12H #20 tab Patient Education Materials: Wound Infection (ED) Referrals: Lourdes Staley PA [Primary Care Provider] - If Needed - Billing Disposition and Condition Condition: STABLE Disposition: Home
[2018-07-25] MEDS ORDERED: Sulfamethox/Trimethoprim DS 800/160* TAB PO ONE (19:02)
--- NOTE | 2018-07-27 07:13 | UC ---
- Progress Note Progress Note: no organisms pending culture no change monalisa 07/27/18 Course/Dx - Diagnoses Provider Diagnoses: Carbuncle and furuncle of neck Discharge - Sign-Out/Discharge Documenting (check all that apply): Post-Discharge Follow Up All imaging exams completed and their final reports reviewed: No Studies - Discharge Plan Condition: Stable Disposition: HOME Prescriptions: Cephalexin CAP* [Keflex 500 CAP*] 500 mg PO Q12H #20 cap Sulfamethox/Trimethoprim DS* [Bactrim DS 800/160 TAB*] 1 tab PO Q12H #20 tab Patient Education Materials: Wound Infection (ED) Referrals: Lourdes Staley PA [Primary Care Provider] - If Needed - Billing Disposition and Condition Condition: STABLE Disposition: Home
--- NOTE | 2018-07-27 08:49 | UC ---
- Progress Note Progress Note: + MRSA pt on bactrim, keflex await sensitivity no change rahulj 07/27/18 Course/Dx - Diagnoses Provider Diagnoses: Carbuncle and furuncle of neck Discharge - Sign-Out/Discharge Documenting (check all that apply): Post-Discharge Follow Up All imaging exams completed and their final reports reviewed: No Studies - Discharge Plan Condition: Stable Disposition: HOME Prescriptions: Cephalexin CAP* [Keflex 500 CAP*] 500 mg PO Q12H #20 cap Sulfamethox/Trimethoprim DS* [Bactrim DS 800/160 TAB*] 1 tab PO Q12H #20 tab Patient Education Materials: Wound Infection (ED) Referrals: Lourdes Staley PA [Primary Care Provider] - If Needed - Billing Disposition and Condition Condition: STABLE Disposition: Home
--- NOTE | 2018-07-28 15:48 | UC ---
- Progress Note Progress Note: Microbiology lab called to inform us that antibiotic susceptibilities delayed. MRSA is positive. Patient's on Keflex and Bactrim. At this time we will await's sensitivities. No change. Course/Dx - Diagnoses Provider Diagnoses: Carbuncle and furuncle of neck Discharge - Sign-Out/Discharge Documenting (check all that apply): Patient Departure All imaging exams completed and their final reports reviewed: No Studies - Discharge Plan Condition: Stable Disposition: HOME Prescriptions: Cephalexin CAP* [Keflex 500 CAP*] 500 mg PO Q12H #20 cap Sulfamethox/Trimethoprim DS* [Bactrim DS 800/160 TAB*] 1 tab PO Q12H #20 tab Patient Education Materials: Wound Infection (ED) Referrals: Lourdes Staley PA [Primary Care Provider] - If Needed - Billing Disposition and Condition Condition: STABLE Disposition: Home
== END 2018-07-25 19:26 | disposition home or self-care (01) ==
LOC: UCCORT 18:32
DX: L02.13 Carbuncle of neck (principal); L02.12 Furuncle of neck; J30.89 Other allergic rhinitis; E11.9 Type 2 diabetes mellitus without complications; Z87.891 Personal history of nicotine dependence
CPT/HCPCS: 87070; 87205; 87640; 87641; 99212; A9270-GY; G0463

== ENCOUNTER 2019-05-28 10:17 | Emergency (ER) | payer OTHER ==
--- OUTSIDE RECORDS SUMMARY | 2019-05-28 10:25 | XMS REPORT | Continuity of Care Document ---
:1995 External Reference #:[id number] Author Name Lia Luna PA Address [address] [place] [address] Care Team Providers Name Role Phone Lourdes Staley PA - Medical Care Team Information Boiling Tub Operator [phone] David Salomon MD - Endocrinology, Care Team Information Boiling Tub Operator [phone] Diabetes & Metabolism Problems Active Problems Provider Date Verruca plantaris Kenan Kuhn MD,FACS Onset: 08/30/2016 Type 1 diabetes mellitus uncontrolled Lourdes Staley PA Onset: 05/31/2017 Derangement of knee Lia Luna PA Onset: 03/27/2019 Social History Type Date Description Comments Sex Unknown ETOH Use Occasionally consumes alcohol Tobacco Use Start: Unknown End: Patient is a former smoker 1/2 pack per day. Unknown Started at age 16. Quit 3 years ago. Smoking Status Reviewed: 03/27/19 Patient is a former smoker 1/2 pack per day. Started at age 16. Quit 3 years ago. Allergies, Adverse Reactions, Alerts Description No Known Drug Allergies Medications Active Medications SIG Qnty Indications Ordering Date Provider Naproxen 1 by mouth twice 60tabs M25.562 Kelli Marcum, 03/23/2019 500mg Tablets a day as needed MD for pain. Take with food Levothyroxine Sodium 1 by mouth every Unknown 02/02/2019 day 100mcg Tablets Ventolin HFA 2 puffs every 4 18gm J45.20 Kelli Marcum, 05/02/2018 hours as needed 108(90Base) mcg/Act for cough and Aerosol wheeze Pulmicort Flexhaler one puff twice a 3units J45.20 Lisa, 02/24/2017 day Mau, 180mcg/Act Aerosol SKILLED NURSING FACILITY COUNSELOR Alma Contour Next 1 strip 3-4x a 350units E10.65 DonisMeghanri, 11/08/2016 Blood Glucose Test day M.D. Strips Onetouch Ultra Blue use to test blood 150units Caren Dykes, 06/09/2016 sugar 2-4x a day M.D. Strips Minimed Pro-Set as needed 10units E10.65 Caren Dykes, 03/25/2016 Infusion Set/24"/6mm M.D. 24"/6mm Misc Minimed Pump change reservoir 30units E10.65 Caren Dykes, 03/04/2016 Eads 3ML every 3 days M.D. Res 3ML Misc Ketone Test as needed 50units Caren Dykes, 12/05/2015 Strips M.D. Alma Contour Next GonzaloMeghan frazierir, Blood Glucose Test MD Strips Admelog Use With Insulin Unknown 100Unit/ML Pump Maximum Solution Daily Dose 100 Units Immunizations CPT Code Status Date Vaccine Lot # [id number] Given 03/23/2019 Influenza Virus Vaccine, Quadrivalent, 36 Mos+, [id number] .[id number] 71484 Given 05/02/2018 Pneumococcal Conjugate Vaccine 13 Valent For [id number] Intramuscular Use 73346 Given 01/11/2018 Influenza Virus Vaccine, Quadrivalent, 36 Mos+, [id number] .[id number] 07722 Given 02/02/2017 Influenza Virus Vaccine Quadrivalent Iiv4 Split Preser Free Id Vital Signs Date Vital Result Comment 03/27/2019 2:02pm BP Systolic Sitting Left Arm 103 mmHg BP Diastolic Sitting Left Arm 67 mmHg Body Temperature 97.3 F Heart Rate 78 /min Respiratory Rate 20 /min Weight 224.00 lb O2 % BldC Oximetry 98 % 03/23/2019 4:02pm BP Systolic 124 mmHg BP Diastolic 74 mmHg Body Temperature 98.0 F Heart Rate 72 /min Respiratory Rate 18 /min Height 65 inches 5'5" Weight 222.00 lb BMI (Body Mass Index) 36.9 kg/m2 BSA (Body Surface Area) 2.07 m2 [place] body weight in kilograms 57 kg O2 % BldC Oximetry 98 % Results Description No Information Available Procedures Date Code Description Status 03/05/2019 40976 Eye Exam Est Patient Comprehensive Completed 03/21/2018 190699649 Diabetic Foot Exam Completed Medical Devices Description No Information Available Encounters Type Date Location Provider Dx Diagnosis Office Visit 03/27/2019 Orthopaedic Office Lia Luna, M23.8x2 Other internal 2:00p PA derangements of left knee Office Visit 03/23/2019 [facility] Lourdes Staley, M25.562 Pain in left knee 4:15p [facility] PA Z23 Encounter for immunization Assessments Date Code Description Provider 03/27/2019 M23.8x2 Other internal derangements of left knee Lia Luna PA 03/23/2019 M25.562 Pain in left knee Lourdes Staley PA 03/23/2019 Z23 Encounter for immunization Lourdes Staley PA 03/05/2019 E10.65 Type 1 diabetes mellitus with hyperglycemia David Rocha MD Plan of Treatment Future Appointment(s):05/08/2019 4:00 pm - L[facility]des Staley PA at [facility]03/10/2020 1:30 pm - David Rocha MD at Ophthalmology Functional Status Functional Condition Comment Date Status Independent with all ADL's Active Mental Status Description No Information Available Referrals Refer to Reason for Referral Status Appt Date Lia Luna RPA-C Left knee injury 2 weeks ago. Patient Sent 03/27/2019 reports she woke with pain, had trouble walking. She did go to ER and had negative xray. Was given knee brace and crutches. She continues to have difficulty moving around. [address], [address] [place] [address] [phone]
--- OUTSIDE RECORDS SUMMARY | 2019-05-28 10:25 | XMS REPORT | Continuity of Care Document ---
:1995 External Reference #:[id number] Author Name Lia Luna PA Address [address] [facility] [place] [address] Care Team Providers Name Role Phone Lourdes Staley PA - Medical Care Team Information Cell Assembly Pinner [phone] David Salomon MD - Endocrinology, Care Team Information Cell Assembly Pinner Diabetes & Metabolism Problems Active Problems Provider Date Verruca plantaris Kenan Kuhn MD,FACS Onset: 08/30/2016 Type 1 diabetes mellitus uncontrolled Lourdes Staley PA Onset: 05/31/2017 Derangement of knee Lia Luna PA Onset: 03/27/2019 Social History Type Date Description Comments Sex Unknown Tobacco Use Start: Unknown End: Former Cigarette Smoker Unknown Smoking Status Reviewed: 04/06/19 Former Cigarette Smoker ETOH Use Occasionally consumes alcohol Tobacco Use Start: Unknown End: Patient is a former smoker 1/2 pack per day. Unknown Started at age 16. Quit 3 years ago. Allergies, Adverse Reactions, Alerts Description No Known Drug Allergies Medications Active Medications SIG Qnty Indications Ordering Date Provider Naproxen 1 by mouth twice 60tabs M25.562 Kelli Marcum, 03/23/2019 500mg Tablets a day as needed for pain. Take with food Levothyroxine Sodium 1 by mouth every Unknown 02/02/2019 day 100mcg Tablets Ventolin HFA 2 puffs every 4 18gm J45.20 Kelli Marcum, 05/02/2018 hours as needed 108(90Base) mcg/Act for cough and Aerosol wheeze Pulmicort Flexhaler one puff twice a 3units J45.20 Lisa, 02/24/2017 day Jenniferleigh, 180mcg/Act Aerosol DENTAL THERAPIST Alma Contour Next 1 strip 3-4x a 350units E10.65 Caren Dykes, 11/08/2016 Blood Glucose Test day M.D. Strips Onetouch Ultra Blue use to test blood 150units Carne Dykes, 06/09/2016 sugar 2-4x a day M.D. Strips Minimed Pro-Set as needed 10units E10.65 Caren Dykes, 03/25/2016 Infusion Set/24"/6mm M.D. 24"/6mm Misc Minimed Pump change reservoir 30units E10.65 Caren Dykes, 03/04/2016 [place] 3ML every 3 days M.D. Res 3ML Misc Ketone Test as needed 50units Caren Dykes, 12/05/2015 Strips M.D. Alma Contour Next GonzaloMeghan frazierir, Blood Glucose Test MD Strips Admelog Use With Insulin Unknown 100Unit/ML Pump Maximum Solution Daily Dose 100 Units Immunizations CPT Code Status Date Vaccine Lot # 37092 Given 03/23/2019 Influenza Virus Vaccine, Quadrivalent, 36 Mos+, [id number] .5ML 57367 Given 05/02/2018 Pneumococcal Conjugate Vaccine 13 Valent For [id number] Intramuscular Use 92141 Given 01/11/2018 Influenza Virus Vaccine, Quadrivalent, 36 Mos+, [id number] .5ML 19888 Given 02/02/2017 Influenza Virus Vaccine Quadrivalent Iiv4 Split Preser Free Id Vital Signs Date Vital Result Comment 04/06/2019 12:52pm BP Systolic Sitting Left Arm 118 mmHg BP Diastolic Sitting Left Arm 75 mmHg Heart Rate 67 /min 03/27/2019 2:02pm BP Systolic Sitting Left Arm 103 mmHg BP Diastolic Sitting Left Arm 67 mmHg Body Temperature 97.3 F Heart Rate 78 /min Respiratory Rate 20 /min Weight 224.00 lb O2 % BldC Oximetry 98 % Results Description No Information Available Procedures Date Code Description Status 03/05/2019 84234 Eye Exam Est Patient Comprehensive Completed 03/21/2018 391976359 Diabetic Foot Exam Completed Medical Devices Description No Information Available Encounters Type Date Location Provider Dx Diagnosis Office Visit 04/06/2019 Orthopaedic Office Lia Luna, M23.8x2 Other internal 1:00p PA derangements of left knee Office Visit 03/27/2019 Orthopaedic Office Lia Luna, M25.562 Pain in left knee 2:00p PA M23.8x2 Other internal derangements of left knee Office Visit 03/23/2019 4:15p [facility] Lourdes Staley, M25.562 [place] [facility] [place] Encounter for immunization Assessments Date Code Description Provider 04/06/2019 M23.8x2 Other internal derangements of left knee Lia Luna PA 03/27/2019 M25.562 Pain in left knee Lia Luna PA 03/27/2019 M23.8x2 Other internal derangements of left knee Lia Luna PA 03/23/2019 M25.562 Pain in left knee Lourdes Staley PA 03/23/2019 Z23 Encounter for immunization Lourdes Staley PA 03/05/2019 E10.65 Type 1 diabetes mellitus with hyperglycemia David Rocha MD Plan of Treatment Future Appointment(s):05/08/2019 4:00 pm - Lourdes Staley PA at [facility]03/10/2020 1:30 pm - David Rocha MD at [...] continues to have difficulty moving around. [address], [address] [place] [address] [phone]
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
[2019-05-28 11:05] VITALS: BP 110/58
--- NOTE | 2019-05-28 11:45 | UC ---
Eye Complaint HPI - HPI Summary HPI Summary: 24 yo female with right pink eye x 4 days AM d/c no eye pain no visual c/o no fever no photophobia - History of Current Complaint Chief Complaint: UCEye Stated Complaint: RIGHT EYE COMPLAINT Time Seen by Provider: 05/28/19 11:31 Hx Obtained From: Patient Hx From Patient Unobtainable Due To: Dementia Hx Last Menstrual Period: 05/03/2019 Onset/Duration: Sudden Onset, Gradual Onset Timing: Constant Severity Initially: Mild Severity Currently: Moderate Pain Intensity: 0 Pain Scale Used: 0-10 Numeric Location of Injury: Other - no injury Character: Dull Aggravating Factor(s): Nothing Alleviating Factor(s): Nothing Associated Signs And Symptoms: Positive: Drainage (Purulent) - Risk Factors Penetrating Injury Risk Factor: Negative Globe Rupture Risk Factors: Negative Optic Artery Occlusion Risk Factors: Negative - Allergies/Home Medications Allergies/Adverse Reactions: Allergies Allergy/AdvReac Type Severity Reaction Status Date / Time No Known Allergies Allergy Verified 05/28/19 10:58 Home Medications: Home Medications Insulin LISPRO* [HumaLOG 100 units/ml 3 ml VIAL *] 0 - 10 units SUBCUT QID ACHS 07/25/18 [History Confirmed 05/28/19] Polymyx/Trimethoprim OPTH* [Polytrim OPHTH*] 1 - 2 drop RIGHT EYE QID #1 btl 12/08 [Rx] PMH/Surg Hx/FS Hx/Imm Hx Previously Healthy: Yes Endocrine History: Diabetes - Surgical History Surgical History: Yes Surgery Procedure, Year, and Place: left arm mole 2010, , tubal ligation - Family History Known Family History: Positive: Hypertension, Respiratory Disease, Other - breast CA - Social History Alcohol Use: Occasionally Substance Use Type: None Smoking Status (MU): Former Smoker Type: Cigarettes Amount Used/How Often: 2 per day Length of Time of Smoking/Using Tobacco: <1/4 PPD x 5 Years On and Off Have You Smoked in the Last Year: Yes When Did the Patient Quit Smoking/Using Tobacco: 2013 - Immunization History Most Recent Tetanus Shot: 01/08/13 Vaccination Up to Date: No Review of Systems All Other Systems Reviewed And Are Negative: Yes Constitutional: Positive: Negative Skin: Positive: Negative Eyes: Positive: Drainage, Eye Redness ENT: Positive: Negative Respiratory: Positive: Negative Cardiovascular: Positive: Negative Gastrointestinal: Positive: Negative Genitourinary: Positive: Negative Motor: Positive: Negative Neurovascular: Positive: Negative Musculoskeletal: Positive: Negative Neurological/Mental Status: Positive: Negative Psychological: Positive: Negative Physical Exam Triage Information Reviewed: Yes Appearance: Well-Appearing, No Pain Distress, Well-Nourished Vital Signs: Initial Vital Signs Temp 98.5 F 05/28/19 10:57 Pulse 72 05/28/19 10:57 Resp 16 05/28/19 10:57 BP 110/58 05/28/19 10:57 Pulse Ox 100 05/28/19 10:57 Vital Signs Reviewed: Yes Eyes: Positive: Conjunctiva Inflamed - R, Discharge - R ENT: Positive: Hearing grossly normal. Negative: Pharyngeal erythema, Nasal congestion, Nasal drainage, Trismus, Muffled voice, Hoarse voice, Sinus tenderness Dental Exam: Normal Neck: Positive: Supple, Nontender, No Lymphadenopathy Respiratory: Positive: Lungs clear, Normal breath sounds, No respiratory distress, No accessory muscle use Cardiovascular: Positive: RRR, No Murmur Musculoskeletal: Positive: ROM Intact, No Edema Neurological: Positive: Alert Psychological Exam: Normal Skin Exam: Normal Eye Complaint Course/Dx - Differential Dx/Diagnosis Provider Diagnosis: Conjunctivitis, right eye Discharge ED - Sign-Out/Discharge Documenting (check all that apply): Patient Departure All imaging exams completed and their final reports reviewed: No Studies - Discharge Plan Condition: Stable Disposition: HOME Prescriptions: Polymyx/Trimethoprim OPTH* [Polytrim OPHTH*] 1 - 2 drop RIGHT EYE QID #1 btl Patient Education Materials: Conjunctivitis (ED) Referrals: Lourdes Staley PA [Primary Care Provider] - 4 Days (if not improved ) Additional Instructions: you can also use ZADITOR eye drops (OTC) - Billing Disposition and Condition Condition: STABLE Disposition: Home
== END 2019-05-28 11:42 | disposition home or self-care (01) ==
LOC: UCCORT 10:17
DX: H10.9 Unspecified conjunctivitis (principal); E11.9 Type 2 diabetes mellitus without complications; Z79.4 Long term (current) use of insulin; Z87.891 Personal history of nicotine dependence
CPT/HCPCS: 99212; G0463

== ENCOUNTER 2019-07-15 11:23 | Emergency (ER) | payer OTHER ==
--- NOTE | 2019-07-15 11:31 | UC ---
Dental HPI - HPI Summary HPI Summary: 24 y/o female presents to the urgent care c/o left lower dental pain w/ a cracked molar and mild swelling for the past 3 days. Symptoms worsen last night since she was unable to sleep last night. Pain now is 8/10 radiating to the left ear. She took Advil PO 400mg about 1hr ago. Pt has been drinking fluids, but unable to eat well due to pain. Pt denies fever, trismus, TAN, dizziness, URI symptoms, sick contacts, SOB, chest pain, abdominal pain, N/V/D. - History of Current Complaint Stated Complaint: DENTAL Time Seen by Provider: 07/15/19 11:29 Hx Obtained From: Patient Hx Last Menstrual Period: 05/03/2019 Onset/Duration: Gradual Onset, Lasting Days - 3 days, Still Present, Worse Since - last night unable to sleep due to pain Severity: Moderate Pain Intensity: 8 Pain Scale Used: 0-10 Numeric Aggravating Factor(s): Chewing Alleviating Factor(s): OTC Meds - Advil PO 400mg. Last dose taken was about 1 hr ago - Allergies/Home Medications Allergies/Adverse Reactions: Allergies Allergy/AdvReac Type Severity Reaction Status Date / Time No Known Allergies Allergy Verified 07/15/19 11:36 Home Medications: Home Medications Insulin LISPRO* [HumaLOG 100 units/ml 3 ml VIAL *] 0 - 10 units SUBCUT QID ACHS 07/25/18 [History Confirmed 07/15/19] Clindamycin Cap(NF) [Clindamycin Cap 300 mg Cap(NF)] 300 mg PO TID #30 cap 07/14 [Rx] PMH/Surg Hx/FS Hx/Imm Hx Previously Healthy: Yes Endocrine History: Diabetes Respiratory History: Asthma - Surgical History Surgical History: Yes Surgery Procedure, Year, and Place: left arm mole 2010, , tubal ligation - Family History Known Family History: Positive: Hypertension, Diabetes, Respiratory Disease, Other - breast CA - Social History Occupation: Employed Full-time Lives: With Family Alcohol Use: Occasionally Substance Use Type: None Smoking Status (MU): Former Smoker Type: Cigarettes Amount Used/How Often: 2 per day Length of Time of Smoking/Using Tobacco: <1/4 PPD x 5 Years On and Off Have You Smoked in the Last Year: Yes When Did the Patient Quit Smoking/Using Tobacco: 2014 - Immunization History Most Recent Tetanus Shot: 01/08/13 Vaccination Up to Date: No Review of Systems All Other Systems Reviewed And Are Negative: Yes Constitutional: Positive: Negative Skin: Positive: Negative Eyes: Positive: Negative ENT: Positive: Dental Pain - left lower jaw pain radiating to the left ear w/ mild molar fracture and swelling, Ear Ache - left ear Respiratory: Positive: Negative Cardiovascular: Positive: Negative Gastrointestinal: Positive: Negative Genitourinary: Positive: Negative Motor: Positive: Negative Neurovascular: Positive: Negative Musculoskeletal: Positive: Negative Neurological/Mental Status: Positive: Negative Psychological: Positive: Negative Is Patient Immunocompromised?: No Physical Exam - Summary Physical Exam Summary: Vital Signs Reviewed: Yes General: Well-Appearing, Well-Nourished obese female sitting in the examining table w/o any respiratory or pain distress Eyes: Positive: Conjunctiva Clear - PERRLA, EOMI, ENT: Positive: Normal ENT inspection, Hearing grossly normal, Pharynx normal, TMs normal - B/L external ear canals clear,. Negative: Tonsillar swelling, Tonsillar exudate, Trismus Dental: Positive: Positive Caries on molar #19 w/ gingival swelling and mild erythema, missing molars 18 and 20, tender to percussion. involves tissue surrounding theses molars, w/ positive anterior Cervical Lymphadenopathy. Neck: Positive: Supple Respiratory: Positive: Chest non-tender, Lungs clear, Normal breath sounds, No respiratory distress Cardiovascular: Positive: RRR, No Murmur, Pulses Normal, Brisk Capillary Refill Abdomen Description: Positive: Nontender, No Organomegaly, Soft. Negative: CVA Tenderness (R), CVA Tenderness (L) Bowel Sounds: Positive: Present Musculoskeletal: Positive: Strength Intact, ROM Intact, No Edema Neurological Exam: Normal Psychological Exam: Normal Skin Exam: Normal Triage Information Reviewed: Yes Dental Complaint Course/Dx - Course Course Of Treatment: 24 y/o female presents to the urgent care c/o left lower dental pain w/ a cracked molar and mild swelling for the past 3 days. Symptoms worsen last night since she was unable to sleep last night. Pain now is 8/10 radiating to the left ear. She took Advil PO 400mg about 1hr ago. Pt has been drinking fluids, but unable to eat well due to pain. Pt denies fever, trismus, TAN, dizziness, URI symptoms, sick contacts, SOB, chest pain, abdominal pain, N/V/D. Hx obtained. Pt w/ Positive Caries on molar #19 w/ gingival swelling and mild erythema, missing molars 18 and 20, tender to percussion. involves tissue surrounding theses molars, w/ positive anterior Cervical Lymphadenopathy on examination. Pt Rx Clindamycin PO and Ibuprofen PO as directed below. Pt strongly advised to f/u with Dentist as soon as possible for further evaluation and treatment. Advised to continue taking Ibuprofen and alternate with Tylenol PO and apply ice to alleviate symptoms. D/C instructions explained. Pt understood and agreed with the plan of care. - Differential Dx/Diagnosis Differential Diagnosis/Dx: Dental Abscess, Fractured Tooth, Peridontic Disease, Peritonsillar Abcess, Tonsillitis Provider Diagnosis: Dental abscess Discharge ED - Sign-Out/Discharge Documenting (check all that apply): Patient Departure - D/C home All imaging exams completed and their final reports reviewed: No Studies - Discharge Plan Condition: Good Disposition: HOME Prescriptions: Clindamycin Cap(NF) [Clindamycin Cap 300 mg Cap(NF)] 300 mg PO TID #30 cap Patient Education Materials: Dental Abscess (ED) Referrals: Lourdes Staley PA [Primary Care Provider] - 2 Days Additional Instructions: 1-Please take full course of antibiotics to avoid resistance. Take yogurt w/ probiotics or culturelle to protect your GI system 2- Continue taking Ibuprofen PO q8hrs after meals and alternate with Tylenol PO to alleviate pain and swelling. Use mouth wash Listerine and apply ice to decrease swelling and alleviate symptoms. 3- F/u with your Dentist or Dental List provided as soon as possible for further treatment. 4- If symptoms do not improve or worsen please return to the urgent care or f/u with your PCP for further evaluation and treatment - Billing Disposition and Condition Condition: GOOD Disposition: Home - Attestation Statements Provider Attestation: This patient was not seen by me. Chart reviewed. I was available for consult. BETSY
[2019-07-15 11:36] VITALS: BP 132/63
== END 2019-07-15 11:56 | disposition home or self-care (01) ==
LOC: UCCORT 11:23
DX: K04.7 Periapical abscess without sinus (principal); H92.02 Otalgia, left ear; E11.9 Type 2 diabetes mellitus without complications; Z79.4 Long term (current) use of insulin; Z87.891 Personal history of nicotine dependence
CPT/HCPCS: 99212; G0463